=== PATIENT | female | born 1980 | race Caucasian/White ===

== ENCOUNTER 2017-04-23 22:35 | Emergency (ER) | payer OTHER ==
[2017-04-23] MEDS ORDERED: KETOROLAC TROMETHAMINE INJ/PF 30 MG/1 ML SDV IM ONE (23:16)
--- NOTE | 2017-04-23 23:30 | ER Document Report ---
ED General - General Chief Complaint: Vaginal Pain Stated Complaint: PRESSURE IN PELVIS Time Seen by Provider: 04/23/17 22:59 TRAVEL OUTSIDE OF THE U.S. IN LAST 30 DAYS: No COUNTRY TRAVELED TO/FROM: [facility] Notes: Patient is a 36-year-old female with a past medical history significant for partial hysterectomy, ovarian cyst, tubal ligation who presents to the ED complaining of lower pelvic pain and vaginal pain 1 month with increased pain over the last couple days with occ lower back pain. Patient states that she was evaluated at the urgent care earlier, but did not have a full pelvic exam performed at that time. She was diagnosed with a yeast infection and was placed on Flagyl. Patient states that for 1 week she did try [id number] Monistat with minimal relief. Patient believes that she has noticed a white thick discharge. Patient states that she has not had any sexual intercourse in the last 5 months and that she has been in a monogamous relationship since then. Patient has no concerns of STD or STI. Patient still eating and drinking without any difficulties. She is urinating normally and having normal bowel movements. Denies any other recent illness. Denies any headache, fever, URI, sore throat, chest pain, palpitations, syncope, cough, shortness of breath , wheeze, dyspnea, nausea/vomiting/diarrhea, urinary retention, dysuria, hematuria, loss of control of bowel or bladder, numbness/tingling, saddle anesthesia, muscle paralysis/weakness, or rash. - Related Data Allergies/Adverse Reactions: Sulfa (Sulfonamide Antibiotics) Allergy (Severe, Verified 04/23/17 22:40) hives, swelling of tongue, resp distress, passed out tramadol Allergy (Verified 04/23/17 22:40) Past Medical History - Social History Smoking Status: Never Smoker Family History: CVA, DM, Hypertension Patient has suicidal ideation: No Patient has homicidal ideation: No - Past Medical History Cardiac Medical History: Pulmonary Medical History: Neurological Medical History: Reports: Hx Seizures - x1 2010(unknown etiology) no meds Renal/ Medical History: Reports: Hx Ectopic , Hx Ovarian Cysts. Denies: Hx Peritoneal Dialysis GI Medical History: Musculoskeltal Medical History: Denies Hx Arthritis, Reports Hx Musculoskeletal Trauma Psychiatric Medical History: Reports: Hx Anxiety, Hx Obsessive Compulsive Disorder Traumatic Medical History: Reports: Hx Fractures Infectious Medical History: Past Surgical History: Reports: Hx Gynecologic Surgery - ablasion, Hx Hysterectomy, Hx Nose Surgery, Hx Orthopedic Surgery - R wrist, Hx Pacemaker, Hx Tonsillectomy, Hx Tubal Ligation - Immunizations Immunizations up to date: Yes Hx Diphtheria, Pertussis, Tetanus Vaccination: Yes - Tetanus only 5-7 yrs ago Review of Systems - Review of Systems -: Yes All other systems reviewed and negative Physical Exam - Vital signs Vitals: Temp Pulse Resp BP Pulse Ox 98.9 F 101 H 18 128/88 H 97 04/23/17 22:40 04/23/17 22:40 04/23/17 22:40 04/23/17 22:40 04/23/17 22:40 - Notes Notes: PHYSICAL EXAMINATION: accompanied by female nurse, nguyen GENERAL: Well-appearing, well-nourished and in no acute distress. LUNGS: Breath sounds clear to auscultation bilaterally and equal. No wheezes rales or rhonchi. HEART: Regular rate and rhythm without murmurs ABDOMEN: Soft, nondistended abdomen. No guarding, no rebound. No masses appreciated. Normal bowel sounds present. CVA tenderness negative bilaterally. + mild tenderness to the pubic area. No tenderness at McBurney point. De La Garza neg. No pulsatile mass. Female : No inguinal adenopathy. External genitalia without erythema, lesions , or masses. Vaginal mucosa pink with white discharge. + tenderness with insertion of the speculum (correlates with pain described). Cervix parous, pink , and without discharge. Uterus is smooth. No adnexal tenderness. Musculoskeletal: FROM to passive/active. Strength 5+/5. Back: non-tender. FROM. SLR neg b/l. No foot drop. No step-offs or ecchymosis. Extremities: No cyanosis/clubbing/edema b/l. Peripheral pulses 2+. Capillary refill less than 3 seconds. NEUROLOGICAL: Normal speech, normal gait. Normal sensory, motor exams PSYCH: Normal mood, normal affect. SKIN: Warm, Dry, normal turgor, no rashes or lesions noted. Course - Re-evaluation Re-evalutation: 04/24/17 01:55 Patient is an afebrile, well-hydrated, 36-year-old female who presents to the ED with bacterial vaginosis and vaginal pain. Vitals are stable. PE is otherwise unremarkable. CBC, CMP, urinalysis, hCG were unremarkable for any acute pathology. See wet mount. Chlamydia/gonorrhea were negative. Patient is tolerating p.o. without any difficulties. TV US was generally unremarkable aside from not being able to visualize the ovaries due to bowel movement per the tech. No other labs or imaging warranted at this time based on H&P. Patient was given Toradol and Oriental. Low suspicion/risk for acute appendicitis , bowel obstruction, acute cholecystitis, acute cholangitis, perforated diverticulitis, incarcerated hernia, pancreatitis, perforated ulcer, peritonitis , sepsis, pelvic inflammatory disease, ectopic , tubo-ovarian abscess, ovarian torsion (bilateral pain w/o fever and adnexal mass), or other systemic emergent condition at this time. Patient is aware that her condition can change from initial presentation and she needs to monitor symptoms closely and seek medical attention if any acute changes. I will send her home with a prescription for Flagyl to take as directed. Conservative measures otherwise for symptoms. Recheck with OBGYN in 3-5 days. Recheck with your PCM in 3-5 days. Consider consult with a environmental manager. Return to the ED with any worsening/concerning symptoms otherwise as reviewed in discharge. Patient is in agreement. - Vital Signs Vital signs: Temp Pulse Resp BP Pulse Ox 98.9 F 101 H 18 128/88 H 97 04/23/17 22:40 04/23/17 22:40 04/23/17 22:40 04/23/17 22:40 04/23/17 22:40 Procedures - Pelvic Exam Pelvic exam Time completed: 23:30 Cultures obtained: Yes Wet prep obtained: Yes Bimanual exam performed: Yes - neg Witnessed by: sho Prather nurse Discharge - Discharge Clinical Impression: Bacterial vaginosis Condition: Stable Disposition: HOME, SELF-CARE Instructions: Vaginosis, Bacterial ([facility]), Metronidazole ([facility]) Additional Instructions: Maintain fluids (i.e. water) Proper hygenic technique Keep the skin clean Tylenol/ibuprofen as needed Warm/cool compresses Take medications as directed F/u with your PCM in 3-5 days for a recheck Schedule an appointment with OBGYN for further eval and management x3-5 days if able Return to the ED with any worsening symptoms and/or development of fever, headache, chest pain, palpitations, syncope, shortness of breath, trouble breathing, abdominal pain, n/v/d, blood in stool/urine, loss of control of bowel /bladder, urinary retention, or other worsening symptoms that are concerning to you. Prescriptions: Metronidazole [Flagyl] 500 mg PO BID #14 tablet Forms: Elevated Blood Pressure Referrals: [facility] [Provider Group] - Follow up in 3-5 days
[2017-04-23 23:55] LABS: BACTERIA (WET MOUNT) 3+ BACTERIA SEEN; RBCS (WET MOUNT) FEW RBCS SEEN; T.VAGINALIS (WET MOUNT) NO TRICHOMONAS SEEN; WBCS (WET MOUNT) 3+ WBCS SEEN; YEAST (WET MOUNT) NO YEAST SEEN
[2017-04-24 00:05] LABS: APPEARANCE,URINE SLIGHTLY-CLOUDY; BILIRUBIN,URINE NEGATIVE (NEGATIVE); COLOR,URINE YELLOW; GLUCOSE, URINE NEGATIVE (NEGATIVE); KETONES,URINE NEGATIVE (NEGATIVE); LEUKOCYTE ESTERASE,URINE NEGATIVE (NEGATIVE); NITRITE,URINE NEGATIVE (NEGATIVE); PROTEIN,URINE NEGATIVE (NEGATIVE); URINE SPECIFIC GRAVITY 1.025; UROBILINOGEN,URINE NEGATIVE mg/dL (<2.0)
[2017-04-24] MEDS ORDERED: HYDROCODONE/ACETAMINOPHEN 5-325 MG (6 TAB/ER DISP) PO PRN (01:06)
[2017-04-24 01:29] LABS: CHLAM PCR NOT DETECTED (NOT DETECT); GON PCR NOT DETECTED (NOT DETECT)
--- NOTE | 2017-04-24 01:29 | RADIOLOGY REPORT (SQ) ---
EXAM DESCRIPTION: U/S NON OB PEL TV W/DOPPLER CLINICAL HISTORY: 36 years Female, pelvic/vaginal pain COMPARISON: None. TECHNIQUE: Complete pelvic ultrasound with transvaginal and transabdominal imaging. Prior hysterectomy. FINDINGS: Uterus is not identified. This findings compatible with history of prior hysterectomy. No sonographic abnormalities of the vagina or cervical cuff. The ovaries are not identified bilaterally. Small amount of free pelvic fluid. No large adnexal masses. IMPRESSION: 1. Small amount of free pelvic fluid. 2. The ovaries are not identified bilaterally. 3. Prior hysterectomy.
[2017-04-24 02:22] VITALS: BP 118/76
== END 2017-04-24 02:11 | disposition home or self-care (01) ==
LOC: ER 22:35
DX: N76.0 Acute vaginitis (principal); B97.89 Other viral agents as the cause of diseases classified elsewhere; R10.2 Pelvic and perineal pain; Z90.710 Acquired absence of both cervix and uterus
CPT/HCPCS: 99284; 96372; 87086; 87210; 81025; 81001; 87491; 87591; 76830; 93976; J1885

== ENCOUNTER 2017-05-31 17:37 | Emergency (ER) | payer OTHER ==
[2017-05-31 17:49] VITALS: BP 123/78
--- NOTE | 2017-05-31 19:00 | ER Document Report ---
ED General - General Chief Complaint: Burn Stated Complaint: SWOLLEN FOOT Time Seen by Provider: 05/31/17 18:40 Mode of Arrival: Ambulatory Information source: Patient, [facility] Records Notes: This 36-year-old female patient went to the beach yesterday on a nice monserrat day. She did not use much sunscreen. She suffered some clancy to her face chest abdomen and feet. She has developed swelling to the right dorsal foot. She states the foot has been elevated. TRAVEL OUTSIDE OF THE U.S. IN LAST 30 DAYS: No COUNTRY TRAVELED TO/FROM: [facility] - Related Data Allergies/Adverse Reactions: Sulfa (Sulfonamide Antibiotics) Allergy (Severe, Verified 05/31/17 17:48) hives, swelling of tongue, resp distress, passed out tramadol Allergy (Verified 05/31/17 17:48) Past Medical History - General Information source: Patient, [facility] Records - Social History Smoking Status: Current Every Day Smoker Cigarette use (# per day): Yes Chew tobacco use (# tins/day): No Smoking Education Provided: No Frequency of alcohol use: None Drug Abuse: None Lives with: Family Family History: CVA, DM, Hypertension Patient has suicidal ideation: No Patient has homicidal ideation: No - Past Medical History Cardiac Medical History: Pulmonary Medical History: Neurological Medical History: Reports: Hx Seizures - x1 2010(unknown etiology) no meds Renal/ Medical History: Reports: Hx Ectopic , Hx Ovarian Cysts GI Medical History: Musculoskeltal Medical History: Reports Hx Musculoskeletal Trauma Psychiatric Medical History: Reports: Hx Anxiety, Hx Obsessive Compulsive Disorder Traumatic Medical History: Reports: Hx Fractures Infectious Medical History: Past Surgical History: Reports: Hx Gynecologic Surgery - ablasion, Hx Hysterectomy, Hx Nose Surgery, Hx Orthopedic Surgery - R wrist x2, Hx Pacemaker , Hx Tonsillectomy, Hx Tubal Ligation - Immunizations Immunizations up to date: Yes Hx Diphtheria, Pertussis, Tetanus Vaccination: Yes - Tetanus only 5-7 yrs ago Review of Systems - Review of Systems Constitutional: No symptoms reported EENT: No symptoms reported Cardiovascular: No symptoms reported Respiratory: No symptoms reported Gastrointestinal: No symptoms reported Genitourinary: No symptoms reported Female Genitourinary: No symptoms reported Musculoskeletal: No symptoms reported Skin: See HPI Hematologic/Lymphatic: No symptoms reported Neurological/Psychological: No symptoms reported Physical Exam - Vital signs Vitals: Temp Pulse Resp BP Pulse Ox 98.1 F 109 H 18 123/78 99 05/31/17 17:47 05/31/17 17:47 05/31/17 17:47 05/31/17 17:47 05/31/17 17:47 Interpretation: Normal - General General appearance: Appears well, Alert In distress: None - HEENT Head: Normocephalic, Atraumatic, Other - Sunburn to face, early development of some small blistering around her chin. Eyes: Normal Pupils: PERRL Neck: Normal, Supple - Respiratory Respiratory status: No respiratory distress Chest palpation: Other - There is mild sunburn to the upper anterior chest - Cardiovascular Rhythm: Regular - Abdominal Inspection: Other - There is mild sunburn to the abdomen - Extremities General upper extremity: Normal inspection General lower extremity: Other - The dorsal feet are erythematous from sunburn without blisters. The right dorsal foot is very edematous, there is a toe ring on the right second toe, the toe is not swollen. - Neurological Neuro grossly intact: Yes - Psychological Associated symptoms: Normal affect, Normal mood - Skin Skin Temperature: Warm Skin Moisture: Dry Skin Color: Other - Sunburned as described above Course - Vital Signs Vital signs: Temp Pulse Resp BP Pulse Ox 98.1 F 109 H 18 123/78 99 05/31/17 17:47 05/31/17 17:47 05/31/17 17:47 05/31/17 17:47 05/31/17 17:47 Discharge - Discharge Clinical Impression: Sunburn, Edema of right foot Condition: Stable Disposition: HOME, SELF-CARE Additional Instructions: Sunburn Sunburn is caused by prolonged exposure to ultraviolet light. This can be natural sunlight or a tanning bed. Your symptoms may include redness or blistering of the skin, fatigue, weakness, and chills that last two or three days. Treatment includes antiinflammatory pain medication, rest, cooling baths, and moisturizing skin cream. Occasionally, cortisone-type medicine is required for severe sunburns. Antihistamines may be helpful if itching is severe as you heal. You should avoid any exposure to ultraviolet light for the next week or two so that further skin damage can be avoided. In the future, you should use sunscreens. Frequent or prolonged ultraviolet light exposure can cause premature skin aging, skin cancers, and wrinkles. Call the doctor if you are not improving in two or three days. Report any drainage, increasing swelling, fever, chills, or other signs of infection. Apply a small amount of the cream to the top of the right foot in the face on the burned areas twice daily. Use bacitracin ointment on any of the clancy to begin to blister. Try [id number] after burn gel containing aloe and lidocaine for local pain control. Continue taking ibuprofen 800 mg every 8 hours. Elevate your foot above your heart all the time and limit any walking. Follow-up with a local medical doctor if not improving. RETURN TO THE EMERGENCY ROOM IF ANY NEW OR WORSENING SYMPTOMS. Prescriptions: Triamcinolone Cream 0.1% 1 applic TOP ASDIR PRN #1 tub PRN Reason:
== END 2017-05-31 19:11 | disposition home or self-care (01) ==
LOC: ER 17:37
DX: L55.9 Sunburn, unspecified (principal); R60.0 Localized edema; F17.210 Nicotine dependence, cigarettes, uncomplicated; Z88.2 Allergy status to sulfonamides; Z88.6 Allergy status to analgesic agent; Z90.710 Acquired absence of both cervix and uterus; Z95.0 Presence of cardiac pacemaker
CPT/HCPCS: 99282

== ENCOUNTER 2017-06-04 07:19 | Emergency (ER) | payer OTHER ==
[2017-06-04 07:25] VITALS: BP 113/77
[2017-06-04] MEDS ORDERED: LIDOCAINE 2% VISCOUS SOLN 20 ML UDCUP MM ONE (07:45)
--- NOTE | 2017-06-04 07:55 | ER Document Report ---
ED General - General Chief Complaint: Ear Pain Stated Complaint: EAR PAIN Time Seen by Provider: 06/04/17 07:32 TRAVEL OUTSIDE OF THE [place] IN LAST 30 DAYS: No COUNTRY TRAVELED TO/FROM: [facility] Patient complains to provider of: Right ear pain Notes: Patient coming in for right ear pain. States ongoing since she was seen for sunburn. Patient states there has been possible drainage from the right ear. Patient states she was on the beach getting son she did not go in water. Denies any swelling denies any fevers chills nausea vomiting diarrhea. Patient also complains of headache frontal going into the back of the neck. Patient states she has been treating herself with aloe at home - Related Data Allergies/Adverse Reactions: Sulfa (Sulfonamide Antibiotics) Allergy (Severe, Verified 06/04/17 07:20) hives, swelling of tongue, resp distress, passed out tramadol Allergy (Verified 06/04/17 07:20) Past Medical History - Social History Smoking Status: Unknown if Ever Smoked Family History: CVA, DM, Hypertension - Past Medical History Cardiac Medical History: Pulmonary Medical History: Neurological Medical History: Reports: Hx Seizures - x1 2010(unknown etiology) no meds Renal/ Medical History: Reports: Hx Ectopic , Hx Ovarian Cysts. Denies: Hx Peritoneal Dialysis GI Medical History: Musculoskeltal Medical History: Denies Hx Arthritis, Reports Hx Musculoskeletal Trauma Psychiatric Medical History: Reports: Hx Anxiety, Hx Obsessive Compulsive Disorder Traumatic Medical History: Reports: Hx Fractures Infectious Medical History: Past Surgical History: Reports: Hx Gynecologic Surgery - ablasion, Hx Hysterectomy, Hx Nose Surgery, Hx Orthopedic Surgery - R wrist x2, Hx Pacemaker , Hx Tonsillectomy, Hx Tubal Ligation - Immunizations Immunizations up to date: Yes Hx Diphtheria, Pertussis, Tetanus Vaccination: Yes - Tetanus only 5-7 yrs ago Review of Systems - Review of Systems Constitutional: No symptoms reported EENT: Ear pain Cardiovascular: No symptoms reported Respiratory: No symptoms reported Gastrointestinal: No symptoms reported Genitourinary: No symptoms reported Female Genitourinary: No symptoms reported Musculoskeletal: No symptoms reported Skin: No symptoms reported Hematologic/Lymphatic: No symptoms reported Neurological/Psychological: No symptoms reported -: Yes All other systems reviewed and negative Physical Exam - Vital signs Vitals: Temp Pulse Resp BP Pulse Ox 98.0 F 105 H 16 113/77 100 06/04/17 07:23 06/04/17 07:23 06/04/17 07:23 06/04/17 07:23 06/04/17 07:23 Interpretation: Normal - General General appearance: Appears well, Alert - HEENT Head: Normocephalic, Atraumatic Eyes: Normal Conjunctiva: Normal Cornea: Normal Pupils: PERRL Ears: Other - Sunburn to the right pinna External canal: Normal Tympanic membrane: Normal Sinus: Normal Nasal: Normal Mouth/Lips: Normal Mucous membranes: Normal Pharynx: Normal Neck: Normal Notes: Diffuse sunburn to the majority of the right side of the face - Respiratory Respiratory status: No respiratory distress Chest status: Nontender Breath sounds: Normal Chest palpation: Normal - Cardiovascular Rhythm: Regular Heart sounds: Normal auscultation Murmur: No - Abdominal Inspection: Normal Distension: No distension Bowel sounds: Normal Tenderness: Nontender Organomegaly: No organomegaly - Back Back: Normal, Nontender - Extremities General upper extremity: Normal inspection, Nontender, Normal color, Normal ROM , Normal temperature General lower extremity: Normal inspection, Nontender, Normal color, Normal ROM , Normal temperature, Normal weight bearing. No: Claudio's sign - Neurological Neuro grossly intact: Yes Cognition: Normal Orientation: AAOx4 [place] Coma Scale Eye Opening: Spontaneous [place] Coma Scale Verbal: Oriented [place] Coma Scale Motor: Obeys Commands [place] Coma Scale Total: 15 Speech: Normal Motor strength normal: LUE, RUE, LLE, RLE Sensory: Normal - Psychological Associated symptoms: Normal affect, Normal mood - Skin Skin Temperature: Warm Skin Moisture: Dry Skin Color: Normal Course - Re-evaluation Re-evalutation: 06/04/17 14:21 Examination of the TM and ear canal not show any signs of otitis media or otitis externa. Patient's pinna does have areas of sunburn more likely etiology of the patient's pain. Patient was given topical lidocaine placed in these areas patient was encouraged follow-up primary care physician and will be discharged home. - Vital Signs Vital signs: Temp Pulse Resp BP Pulse Ox 98.0 F 105 H 16 113/77 100 06/04/17 07:23 06/04/17 07:23 06/04/17 07:23 06/04/17 07:23 06/04/17 07:23 Discharge - Discharge Clinical Impression: Sunburn, Ear pain, right Condition: Good Disposition: HOME, SELF-CARE Instructions: Sunburn ([facility]), Tension Headache ([facility]) Additional Instructions: Examination of the ear today does not reveal any signs ear infection no signs of swimmer's ear. He did have some signs of significant sun exposure to your right ear more likely causing some of your pain. May place the lidocaine gel on your ear to help with the pain. Would also recommend continue to take Tylenol and Motrin. Headache that you are experiencing is a tension headache again from her sun exposure. As the skin heals he will become very tight and dry and can cause a tension headache. Again take Tylenol Motrin for pain control. Is very important to continue to drink plenty of fluids to stay well- hydrated as that she can become significantly dehydrated with just a sunburn. Return to the ER for any other concerns.
== END 2017-06-04 08:09 | disposition home or self-care (01) ==
LOC: ER 07:19
DX: H92.01 Otalgia, right ear (principal); L55.9 Sunburn, unspecified; Z88.2 Allergy status to sulfonamides; Z88.5 Allergy status to narcotic agent
CPT/HCPCS: 99282; J3490

== ENCOUNTER 2017-07-05 06:15 | Emergency (ER) | payer OTHER ==
[2017-07-05 06:22] VITALS: BP 114/69
--- NOTE | 2017-07-05 07:01 | ER Document Report ---
ED ENT - General Mode of Arrival: Ambulatory Information source: Patient TRAVEL OUTSIDE OF THE [place] IN LAST 30 DAYS: No COUNTRY TRAVELED TO/FROM: [facility] - General Chief Complaint: Ear Pain Stated Complaint: EAR PAIN Time Seen by Provider: 07/05/17 06:41 Notes: Patient is a 36 year old female that presents to the emergency department today with complaints of left ear pain. Patient states last night when going to bed she had her "ear buds in" and noticed it was somewhat difficult to remove them and she had slight pain with doing so. Patient states she went to sleep and was awoken at 0400 with increasing left ear pain that radiated down her jaw. Upon review of the [place] database, the patient has been receiving 120 Tylenol #4 for several months along with several other high dosed narcotics going back several years. (KAVIN CURRY) - Related Data Allergies/Adverse Reactions: Sulfa (Sulfonamide Antibiotics) Allergy (Severe, Verified 06/04/17 07:20) hives, swelling of tongue, resp distress, passed out tramadol Allergy (Verified 06/04/17 07:20) Past Medical History - General Information source: Patient - Social History Smoking Status: Current Every Day Smoker Cigarette use (# per day): Yes Frequency of alcohol use: None Drug Abuse: None Lives with: Family Family History: Reviewed & Not Pertinent, CVA, DM, Hypertension - Past Medical History Cardiac Medical History: Pulmonary Medical History: Neurological Medical History: Reports: Hx Seizures - x1 2011(unknown etiology) no meds Renal/ Medical History: Reports: Hx Ectopic , Hx Ovarian Cysts GI Medical History: Musculoskeltal Medical History: Reports Hx Musculoskeletal Trauma Psychiatric Medical History: Reports: Hx Anxiety, Hx Obsessive Compulsive Disorder Traumatic Medical History: Reports: Hx Fractures Infectious Medical History: Past Surgical History: Reports: Hx Gynecologic Surgery - ablasion, Hx Hysterectomy, Hx Nose Surgery, Hx Orthopedic Surgery - R wrist x2, Hx Pacemaker , Hx Tonsillectomy, Hx Tubal Ligation - Immunizations Immunizations up to date: Yes Hx Diphtheria, Pertussis, Tetanus Vaccination: Yes - Tetanus only 5-7 yrs ago Review of Systems - Review of Systems Constitutional: No symptoms reported EENT: See HPI, Other - left ear pain Cardiovascular: No symptoms reported Respiratory: No symptoms reported Gastrointestinal: No symptoms reported Genitourinary: No symptoms reported Female Genitourinary: No symptoms reported Musculoskeletal: No symptoms reported Skin: No symptoms reported Hematologic/Lymphatic: No symptoms reported Neurological/Psychological: No symptoms reported -: Yes All other systems reviewed and negative Physical Exam - Vital signs Interpretation: Normal - General General appearance: Appears well, Alert - HEENT Head: Normocephalic, Atraumatic Eyes: Normal Pupils: PERRL - Respiratory Respiratory status: No respiratory distress Chest status: Nontender Breath sounds: Normal Chest palpation: Normal - Cardiovascular Rhythm: Regular Heart sounds: Normal auscultation Murmur: No - Abdominal Inspection: Normal Distension: No distension Bowel sounds: Normal Tenderness: Nontender Organomegaly: No organomegaly - Back Back: Normal, Nontender - Extremities General upper extremity: Normal inspection, Nontender, Normal ROM. No: Edema General lower extremity: Normal inspection, Nontender, Normal ROM. No: Edema - Neurological Neuro grossly intact: Yes Cognition: Normal Orientation: AAOx4 [place] Coma Scale Eye Opening: Spontaneous [place] Coma Scale Verbal: Oriented [place] Coma Scale Motor: Obeys Commands [place] Coma Scale Total: 15 Speech: Normal - Psychological Associated symptoms: Normal affect, Normal mood - Skin Skin Temperature: Warm Skin Moisture: Dry Skin Color: Normal - Vital signs Vitals: Temp Pulse Resp BP Pulse Ox 98.2 F 88 18 114/69 99 07/05/17 06:18 07/05/17 06:18 07/05/17 06:18 07/05/17 06:18 07/05/17 06:18 - HEENT Notes: TMs clear bilaterally. No anterior canal tenderness with palpation, no drainage , external canal posterior wall over external auditory meatus has anterior bulging with tenderness on palpation. (KAVIN CURRY) - Vital Signs Vital signs: Temp Pulse Resp BP Pulse Ox 98.2 F 88 18 114/69 99 07/05/17 06:18 07/05/17 06:18 07/05/17 06:18 07/05/17 06:18 07/05/17 06:18 Discharge - Discharge Clinical Impression: External ear canal infection Condition: Stable Disposition: HOME, SELF-CARE Additional Instructions: Your exam suggests that there is an infection of the tissues just below the skin in the posterior wall of the external ear canal on the left side. Take the antibiotics as prescribed. Take ibuprofen or Aleve 2 help with inflammation and pain. Follow-up with [facility] this week if not improving. Prescriptions: Doxycycline Hyclate 100 mg PO BID #15 tablet Scribe Attestation: 07/05/17 07:10 I personally performed the services described in the documentation, reviewed and edited the documentation which was dictated to the scribe in my presence, and it accurately records my words and actions. (JANNIE RICHARDS) Scribe Documentation - Scribe Written by Yenifer:: Yenifer Macdonald, 07/05/2017, 0723 acting as scribe for :: Dennis
[2017-07-05] MEDS ORDERED: DOXYCYCLINE HYCLATE 100 MG TABLET PO ONE (07:05)
== END 2017-07-05 07:14 | disposition home or self-care (01) ==
LOC: ER 06:15
DX: H60.399 Other infective otitis externa, unspecified ear (principal); H92.02 Otalgia, left ear; F17.210 Nicotine dependence, cigarettes, uncomplicated; Z79.899 Other long term (current) drug therapy; Z88.2 Allergy status to sulfonamides; Z88.5 Allergy status to narcotic agent
CPT/HCPCS: 99282

== ENCOUNTER 2017-07-06 17:03 | Emergency (ER) | payer OTHER ==
[2017-07-06] MEDS ORDERED: HYDROCODONE/ACETAMINOPHEN 5-325 MG TABLET PO ONE (17:48)
[2017-07-06 18:12] LABS: ABSOLUTE BASOPHILS # (AUTO) 0.1 10^3/uL (0.0-0.2); ABSOLUTE LYMPHOCYTES (AUTO) 2.6 10^3/uL (0.5-4.7); ABSOLUTE MONOCYTES (AUTO) 0.7 10^3/uL (0.1-1.4); ABSOLUTE NEUT (AUTO) 7.2 10^3/uL (1.7-8.2); BASOPHILS % (AUTO) 0.5 % (0-2); EOSINOPHILS % (AUTO) 0.4 % (0-6); HEMATOCRIT 41.7 % (36.0-47.0); HEMOGLOBIN 14.3 g/dL (12.0-15.5); LYMPHOCYTES % (AUTO) 24.3 % (13-45); MEAN CORPUSCULAR HEMOGLOBIN 31.9 pg (27.0-33.4); MEAN CORPUSCULAR HGB CONC 34.2 g/dL (32.0-36.0); MEAN CORPUSCULAR VOLUME 93 fl (80-97); PLATELET COUNT 312 10^3/uL (150-450); RED BLOOD COUNT 4.46 10^6/uL (3.72-5.28); RED CELL DISTRIBUTION WIDTH 13.4 % (11.5-14.0); SEGMENTED NEUTROPHILS % (AUTO) 67.8 % (42-78); TOTAL CELLS COUNTED % (AUTO) 100 %; WHITE BLOOD COUNT 10.6 10^3/uL (4.0-10.5)
--- NOTE | 2017-07-06 18:18 | RADIOLOGY REPORT (SQ) ---
EXAM DESCRIPTION: CT HEAD WITHOUT COMPLETED DATE/TIME: 07/06/2017 6:08 pm REASON FOR STUDY: left ear pain causing headache concerning for mast COMPARISON: None. TECHNIQUE: Axial images acquired through the brain without intravenous contrast. Images reviewed wi th bone, brain and subdural windows. Images stored on PACS. All CT scanners at this facility use dose modulation, iterative reconstruction, and/or weight based d osing when appropriate to reduce radiation dose to as low as reasonably achievable (ALARA). [facility]: Dose Right [facility]: CareDose [facility]: Dose Right [facility]: Teradose 4D [facility]: Smart Drifty RADIATION DOSE: CT Rad equipment meets quality standard of care and radiation dose reduction techniq ues were employed. CTDIvol: 53.2 mGy. DLP: 991 mGy-cm. mGy. LIMITATIONS: None. FINDINGS: VENTRICLES: Normal size and contour. CEREBRUM: No masses. No hemorrhage. No midline shift. No evidence for acute infarction. Normal gra y/white matter differentiation. No areas of low density in the white matter. CEREBELLUM: No masses. No hemorrhage. No alteration of density. No evidence for acute infarction. EXTRAAXIAL SPACES: No fluid collections. No masses. ORBITS AND GLOBE: No intra- or extraconal masses. Normal contour of globe without masses. CALVARIUM: No fracture. PARANASAL SINUSES: No fluid or mucosal thickening. SOFT TISSUES: No mass or hematoma. OTHER: No other significant finding. IMPRESSION: No acute intracranial findings. EVIDENCE OF ACUTE STROKE: NO. COMMENT: Quality ID # [id number]: Final reports with documentation of one or more dose reduction techniques (e.g., Automated exposure control, adjustment of the mA and/or kV according to patient size, use of iterative reconstruction technique) TECHNICAL DOCUMENTATION: JOB ID: [id number] [place]-72 2010 [employer]- All Rights Reserved Reading location - IP/workstation name: [employer]
--- NOTE | 2017-07-06 18:43 | ER Document Report ---
ED ENT - General Chief Complaint: Ear Pain Stated Complaint: LEFT EAR PAIN Time Seen by Provider: 07/06/17 17:26 Mode of Arrival: Ambulatory Information source: Patient Notes: 36-year-old female presented ED for complaint of left ear pain with decreased hearing. She states she was seen here yesterday and sent home from the ED with prescription for doxycycline with no improvement. She states she went to the urgent care and they told her that she had mastoiditis and she needs to come back to the emerge room. Patient is afebrile, alert and oriented pupils equal react to light, respirations regular and unlabored, patient is able to speak with a full sentences and walk with a even steady gait. TRAVEL OUTSIDE OF THE [place] IN LAST 30 DAYS: No COUNTRY TRAVELED TO/FROM: [facility] - [facility] Patient complains to provider of: Ear problem Onset: Other - 2 days Onset/Duration: Gradual, Persistent, Worse Quality of pain: Sharp Severity: Severe Pain Level: 5 Context: Recent Illness Location of pain: Ears, Sinus Associated symptoms: Ear pain, Sinus drainage Similar symptoms previously: Yes Recently seen / treated by doctor: Yes - Related Data Allergies/Adverse Reactions: Sulfa (Sulfonamide Antibiotics) Allergy (Severe, Verified 07/06/17 17:04) hives, swelling of tongue, resp distress, passed out tramadol Allergy (Verified 07/06/17 17:04) Past Medical History - General Information source: Patient - . - Social History Smoking Status: Current Every Day Smoker Cigarette use (# per day): Yes Smoking Education Provided: Yes - 4 minutes Frequency of alcohol use: None Drug Abuse: None Lives with: Family Family History: Reviewed & Not Pertinent, CVA, DM, Hypertension Patient has suicidal ideation: No Patient has homicidal ideation: No - Past Medical History Cardiac Medical History: Reports: None Pulmonary Medical History: Reports: None EENT Medical History: Reports: None Neurological Medical History: Reports: Hx Seizures - x1 2010(unknown etiology) no meds Endocrine Medical History: Reports: None Renal/ Medical History: Reports: Hx Ectopic , Hx Ovarian Cysts Malignancy Medical History: Reports: None GI Medical History: Reports: None Musculoskeltal Medical History: Reports Hx Musculoskeletal Deformity, Reports Hx Musculoskeletal Trauma Skin Medical History: Reports None Psychiatric Medical History: Reports: Hx Anxiety, Hx Obsessive Compulsive Disorder Traumatic Medical History: Reports: Hx Fractures Infectious Medical History: Reports: None Past Surgical History: Reports: Hx Gynecologic Surgery - ablasion, Hx Hysterectomy, Hx Nose Surgery, Hx Orthopedic Surgery - R wrist x2, Hx Pacemaker , Hx Tonsillectomy, Hx Tubal Ligation - Immunizations Immunizations up to date: Yes Hx Diphtheria, Pertussis, Tetanus Vaccination: Yes Review of Systems - Review of Systems Constitutional: Recent illness EENT: Ear pain, Sinus discharge Cardiovascular: No symptoms reported Respiratory: No symptoms reported Gastrointestinal: No symptoms reported Genitourinary: No symptoms reported Female Genitourinary: No symptoms reported Musculoskeletal: No symptoms reported Skin: No symptoms reported Hematologic/Lymphatic: No symptoms reported Neurological/Psychological: No symptoms reported -: Yes All other systems reviewed and negative Physical Exam - Vital signs Vitals: Temp Pulse Resp BP Pulse Ox 98.9 F 82 16 111/73 100 07/06/17 17:11 07/06/17 17:11 07/06/17 17:11 07/06/17 17:11 07/06/17 17:11 Interpretation: Normal - General General appearance: Appears well, Alert - HEENT Head: Normocephalic, Atraumatic Eyes: Normal Pupils: PERRL Ears: Pinna tenderness, Other - Redness and inflammation to the pinna External canal: Erythema, Swollen Tympanic membrane: Normal Sinus: Normal Nasal: Swelling, Clear rhinorrhea Mouth/Lips: Normal Mucous membranes: Normal Pharynx: Post nasal drainage. No: Erythema, Exudate, Peritonsillar abscess, Retropharyngeal abscess, Tonsillar hypertrophy, Uvular edema, Potential airway comprom., Other Neck: Anterior cervical chain - Respiratory Respiratory status: No respiratory distress Chest status: Nontender Breath sounds: Normal Chest palpation: Normal - Cardiovascular Rhythm: Regular Heart sounds: Normal auscultation Murmur: No - Abdominal Inspection: Normal Distension: No distension Bowel sounds: Normal Tenderness: Nontender Organomegaly: No organomegaly - Back Back: Normal, Nontender - Extremities General upper extremity: Normal inspection, Nontender, Normal color, Normal ROM , Normal temperature General lower extremity: Normal inspection, Nontender, Normal color, Normal ROM , Normal temperature, Normal weight bearing. No: Claudio's sign - Neurological Neuro grossly intact: Yes Cognition: Normal Orientation: AAOx4 [place] Coma Scale Eye Opening: Spontaneous [place] Coma Scale Verbal: Oriented [place] Coma Scale Motor: Obeys Commands [place] Coma Scale Total: 15 Speech: Normal Motor strength normal: LUE, RUE, LLE, RLE Sensory: Normal - Psychological Associated symptoms: Normal affect, Normal mood - Skin Skin Temperature: Warm Skin Moisture: Dry Skin Color: Normal Course - Re-evaluation Re-evalutation: 07/06/17 17:[address] Godoy concerning patient's concern for mastoiditis, he recommended a cbc and a ct of head, he recommended calling the radiologist to find it exactly which CT to order to rule out mastoiditis. I called the radiologist at [phone] and spoke with radiologist he recommended a CT without contrast and that she had an elevated temperature or elevated white count. Patient is afebrile with stable vital signs she does have tenderness to palpation of the ear and behind the ear. A CT without contrast was ordered as well as a CBC and chemistry. 07/06/17 18:43 CT head came back as negative with no acute changes no fluid thickening no masses no significant findings. I called the radiologist to make sure there was no signs and symptoms of mastoiditis and he stated it is negative for mastoiditis. Her CBC did not show a bacterial infection at this time. - Vital Signs Vital signs: Temp Pulse Resp BP Pulse Ox 98.4 F 60 16 109/62 100 07/06/17 19:26 07/06/17 19:26 07/06/17 17:11 07/06/17 19:26 07/06/17 19:26 - Laboratory Result Diagrams: 07/06/17 17:55 Laboratory results interpreted by me: 07/06/17 17:55 WBC 10.6 H - Diagnostic Test Radiology reviewed: Image reviewed, Reports reviewed Discharge - Discharge Clinical Impression: Cellulitis of right ear Otitis externa Qualifiers: Otitis externa type: unspecified type Chronicity: acute Laterality: right Qualified Code(s): H60.501 - Unspecified acute noninfective otitis externa, right ear Condition: Stable Disposition: HOME, SELF-CARE Additional Instructions: CELLULITIS: You have an infection of your skin and underlying soft tissues called cellulitis. This is due to bacteria, which can enter through any break in the skin, or even through an irritated hair follicle. Untreated, cellulitis will usually worsen. Antibiotics are required. Usually, warm packs or warm soaks, and elevation of the infected area are recommended. You should start getting better within 24 to 36 hours. Most infections respond quickly to the right medication. Follow-up care is important, however, to check for abscess (boil) formation, unsuspected foreign body, or resistant infection. If you develop fever, chills, or if the area of infection is becoming rapidly more swollen or painful, call the doctor at once. OTITIS EXTERNA: You have otitis externa -- an infection of the outer ear canal. This can be very painful. It's sometimes called "swimmer's ear," because it often occurs after prolonged water exposure. Many things, such as earwax and dirt in the ear, can contribute to it. The usual treatment is antibiotic/antiinflammatory ear drops. Occasionally , a wick will be placed in the ear to draw in the medicine. If the infection is severe, an oral antibiotic may be prescribed. Pain medication is often needed. Avoid getting water in the ear. Outer ear infections often take longer to heal than you might expect. Some tenderness and ache in the ear may persist for about two weeks. See your physician if you fail to improve as expected. Call the doctor at once if you develop fever, increasing swelling (particularly if it makes your ear "poke out"), severe headache, stiff neck, or decreased hearing. USE OF EAR DROPS: Your ear drops won't do much good if they don't get all the way in. To help the ear drops penetrate all the way to the ear drum, use the following technique. If you encounter problems of any kind, notify the physician. (1) Lay your head sideways on a pillow. (2) Place the dropper tip just barely inside the ear canal, almost touching the bottom side of the canal. The liquid is tolerated better on the bottom of the canal. (3) Squeeze out the appropriate amount of medicine, and remove the dropper. (4) Grab the back of the ear (just behind the ear canal) between your index finger and thumb. (5) Tug up, then let the ear drop back. Repeat several times. This pumps the medicine down. (6) Wait five minutes, then place a cotton ball in the ear canal to catch and hold the medicine. USE OF ACETAMINOPHEN (Tylenol): Acetaminophen may be taken for pain relief or fever control. It's much safer than aspirin, offering a wider range of "safe" dosages. It is safe during . Some brand names are Tylenol, Panadol, Datril, Anacin 3, Tempra, and Liquiprin. Acetaminophen can be repeated every four hours. The following are maximum recommended dosages: WEIGHT Dose Drops Elixir Chewable( 80mg) (LBS.) drprs=droppers tsp=teaspoon 6 40 mg 0.4 ml (1/2) 6-11 80 mg 0.8 ml (full) tsp 1 tab 12-16 120 mg 1 1/2 drprs 3/4 tsp 1 1/2 tabs 17-23 160 mg 2 drprs 1 tsp 2 tabs 24-30 240 mg 3 drprs 1 1/2 tsp 3 tabs 30-35 320 mg 2 tsp 4 tabs 36-41 360 mg 2 1/4 tsp 4 1/2 tabs 42-47 400 mg 2 1/2 tsp 5 tabs 48-53 480 mg 3 tsp 6 tabs 54-59 520 mg 3 1/4 tsp 6 1/2 tabs 60-64 560 mg 3 1/2 tsp 7 tabs 65-70 600 mg 3 3/4 tsp 7 1/2 tabs 71-76 640 mg 4 tsp 8 tabs 77-82 720 mg 4 1/2 tsp 9 tabs 83-88 800 mg 5 tsp 10 tabs >89 pounds or adults 650 mg to 900 mg Acetaminophen can be repeated every four hours. Maximum dose not to exceed 4000 mg a day. These maximum recommended dosages are slightly higher than the dosages written on the product container, but these dosages are very safe and below the toxic dosage for acetaminophen. ORAL NARCOTIC MEDICATION: You have been given a prescription for pain control. This medication is a narcotic. It's best taken with food, as nausea can result if taken on an empty stomach. Don't operate machinery or drive within six hours of taking this medication. Do not combine this medicine with alcohol, or with any medication which can cause sedation (such as cold tablets or sleeping pills) unless you get permission from the physician. Narcotics tend to cause constipation. If possible, drink plenty of fluids and eat a diet high in fiber and fruits. Please be aware that prescription narcotics also have the potential for abuse. People become addicted to these medications because of the general sense of wellbeing that they induce. This feeling along with a significant reduction in tension, anxiety, and aggression provides a stimulating seductive quality to these drugs. Once your pain is under control, we encourage you to discard your unused narcotics. CLINDAMYCIN: You have been given a prescription for the antibiotic clindamycin. It is often prescribed for infections in the mouth, such as dental infections or abscesses, and for skin infections due to MRSA. It's important that you take all the medication, unless instructed otherwise by your physician. Failure to complete the entire course can result in relapse of your condition. Common side effects of antibiotics include nausea, intestinal cramping, or diarrhea. Women may develop vaginal yeast infections, and babies can get yeast (thrush) in the mouth following the use of antibiotics. Contact your physician if you develop significant side effects from this medication. Allergy to this antibiotic can result in hives, wheezing, faintness, or itching. If symptoms of allergy occur, stop the medication and call the doctor. FOLLOW-UP CARE: If you have been referred to a physician for follow-up care, call the physician s office for an appointment as you were instructed or within the next two days. If you experience worsening or a significant change in your symptoms, notify the physician immediately or return to the Emergency Department at any time for re-evaluation. Prescriptions: Hydrocodone/Acetaminophen [[place]ell 5-325 mg Tablet] 1 tab PO Q6HP PRN #3 tablet PRN Reason: Clindamycin HCl 300 mg PO TID #21 capsule Neomy Sulf/Polymyx B Sulf/Hc [Cortisporin Eye Drops] 4 drop RT_EAR QID #1 bottle Forms: Smoking Cessation Education Referrals: ODETTE GEORGE DO [ASSOCIATE] - Follow up as needed
[2017-07-06] MEDS ORDERED: CLINDAMYCIN HCL 150 MG CAPSULE PO ONE (19:01)
[2017-07-06 19:28] VITALS: BP 109/62
== END 2017-07-06 19:28 | disposition home or self-care (01) ==
LOC: ER 17:03
DX: H60.11 Cellulitis of right external ear (principal); H60.501 Unspecified acute noninfective otitis externa, right ear; F17.210 Nicotine dependence, cigarettes, uncomplicated
CPT/HCPCS: 36415; 70450; 85025; 99283; 99406